=== PATIENT | female | born 1970 | race Caucasian/White ===

== ENCOUNTER 2023-08-06 15:06 | Emergency (ER) | payer MEDICAID, OTHER ==
[~2023-08-06] VITALS: Ht 157.5 cm; Wt 86.4 kg
[~2023-08-06 15:06] MED LIST: ACET-3068 PO; ATOR40TA PO; IBUP-1984 PO; PANT40TA39 PO; PROG200C11 PO; THY60T PO
[2023-08-06 15:13] VITALS: BP 186/86; PULSE 62; RESP 18; TEMP 97.9; O2SAT 96
[2023-08-06] MEDS: TETanus/Pertussis (Acell)/Diphther VAC/PF (Tdap-Adult) 0.5ml syringe IMVAC ONE (15:18)
[2023-08-06] MEDS: LIDOcaine 1% W/epiNEPHrine 1:100,000 20ml vial SQ ONE (15:31)
[2023-08-06] MEDS: bacitracin 15gm ointment TP ONE (15:59)
== END 2023-08-06 16:03 | disposition home or self-care (01) ==
LOC: ER 15:07
DX: S01.112A Laceration without foreign body of left eyelid and periocular area, initial encounter (principal); E78.00 Pure hypercholesterolemia, unspecified; K21.9 Gastro-esophageal reflux disease without esophagitis; Z88.1 Allergy status to other antibiotic agents; Z88.8 Allergy status to other drugs, medicaments and biological substances; Z79.1 Long term (current) use of non-steroidal anti-inflammatories (NSAID); Z79.899 Other long term (current) drug therapy; Z90.49 Acquired absence of other specified parts of digestive tract; Z90.710 Acquired absence of both cervix and uterus; W19.XXXA Unspecified fall, initial encounter; Y93.89 Activity, other specified; Y92.89 Other specified places as the place of occurrence of the external cause; Y99.8 Other external cause status
CPT/HCPCS: 12011; 99284; A6449

== ENCOUNTER 2023-09-14 20:46 | Emergency (ER) | payer MEDICAID ==
[~2023-09-14] VITALS: Ht 160 cm; Wt 72.7 kg
[2023-09-14 20:48] VITALS: BP 135/76; PULSE 78; RESP 16; TEMP 97.8; O2SAT 98
[2023-09-14] MEDS ORDERED: SYN0.088T PO (20:59)
[2023-09-14] MEDS ORDERED: ALPR1TAB2 PO (20:59)
[2023-09-14] MEDS ORDERED: PANT40SU2 PO (20:59)
[2023-09-14] MEDS ORDERED: IBUP-1984 PO (20:59)
[2023-09-14] MEDS ORDERED: LISD60CA PO (20:59)
== END 2023-09-14 22:15 | disposition home or self-care (01) ==
LOC: ER 20:46
DX: K59.00 Constipation, unspecified (principal); Z76.0 Encounter for issue of repeat prescription; E78.00 Pure hypercholesterolemia, unspecified; Z90.710 Acquired absence of both cervix and uterus; Z90.49 Acquired absence of other specified parts of digestive tract; Z88.8 Allergy status to other drugs, medicaments and biological substances; Z88.1 Allergy status to other antibiotic agents; Z79.899 Other long term (current) drug therapy
CPT/HCPCS: 99281